=== PATIENT | female | born 1970 | race African-American/Black ===

== ENCOUNTER 2017-06-08 07:49 | Emergency (ER) | payer OTHER ==
[~2017-06-08] VITALS: Ht 152.4 cm; Wt 100.0 kg
[~2017-06-08 07:49] MED LIST: AMLO2.5T OR; ASPI81 PO; BACT PO; CELL500T PO; CYCL100C6 PO; FAMO1TAB36 PO; FERR324T PO; LABE200T2 PO; LEVA250T PO; NOVONP2 SQ; NOVORP2 SQ; PRED5 PO; VYTO10TA35 PO
[2017-06-08 07:50] VITALS: BP 192/92; PULSE 96; RESP 18; TEMP 98.3; O2SAT 100
[2017-06-08] MEDS ORDERED: MYCO500 PO (08:08)
[2017-06-08] MEDS ORDERED: LABE200T2 PO (08:08)
[2017-06-08] MEDS ORDERED: VYTO10TA9 PO (08:08)
[2017-06-08] MEDS ORDERED: ASPI81CH6 CHEW (08:08)
[2017-06-08] MEDS ORDERED: CYCL100C6 PO (08:08)
[2017-06-08] MEDS ORDERED: FAMO1TAB37 PO (08:08)
[2017-06-08] MEDS ORDERED: FERR325T18 PO (08:08)
[2017-06-08] MEDS ORDERED: CYCL5TAB PO (08:18)
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
== END 2017-06-08 08:44 | disposition home or self-care (01) ==
LOC: NEPD 07:49
DX: M54.5 Low back pain (principal); R51 Headache
CPT/HCPCS: 99282